=== PATIENT | male | born 1980 | race Caucasian/White ===

== ENCOUNTER 2017-10-22 18:01 | Emergency (ER) | payer OTHER ==
[2017-10-22 18:05] VITALS: BP 140/91
[2017-10-22] MEDS ORDERED: FURO-45 PO (18:11)
[2017-10-22] MEDS ORDERED: LISI-362 PO (18:11)
[2017-10-22] MEDS ORDERED: OMEG-11 PO (18:11)
[2017-10-22] MEDS ORDERED: CHOL10005 PO (18:11)
[2017-10-22] MEDS ORDERED: ATOR40TA24 PO (18:11)
[2017-10-22] MEDS ORDERED: AMLO-96 PO (18:11)
[2017-10-22] MEDS ORDERED: DOXY-179 PO (18:22)
--- NOTE | 2017-10-22 18:23 | ER Report ---
History and Physical Time Seen By MD: 18:09 Hx. of Stated Complaint: pt reports sinus infection x 1.5 weeks HPI/ROS CHIEF COMPLAINT: Sinus congestion, sinus headaches HISTORY OF PRESENT ILLNESS: 37-year-old male patient presents to emergency room with complaint of sinus congestion, sinus headaches. Patient states has been going on for the past 10 days. Patient denies any nausea, vomiting or diarrhea. Patient states he's had a cough which seems to worsen throughout the day. He states that he has been febrile, however when he is checked his temperature is 96 degrees. Patient denies any difficulties with eating and drinking. Patient states he does have significant headaches when he ties his shoes. Patient has a history of multiple sinusitis. He states that he has used doxycycline in the past with good results. Allergies: Coded Allergies: Penicillins (Verified Allergy, Unknown, 10/22/17) codeine (Verified Allergy, Unknown, 10/22/17) erythromycin base (Verified Allergy, Unknown, 10/22/17) shellfish derived (Verified Allergy, Unknown, 10/22/17) Home Meds Active Scripts Doxycycline Hyclate (DOXYCYCLINE HYCLATE) 100 Mg Tablet, 100 MG PO BID, #20 TAB Prov:SATINDER HIDALGO ZUMBA INSTRUCTOR 10/22/17 Reported Medications Cholecalciferol (Vitamin D3) (VITAMIN D3) 1,000 Unit Tablet, 2000 UNIT PO, TAB 10/22/17 [place]-3 Fatty Acids/Fish Oil (FISH OIL 1,000 MG CAPSULE) 1 Each Capsule, 2 EACH PO QDAY, CAPSULE 10/22/17 Furosemide (FUROSEMIDE) 20 Mg Tablet, 1 TAB PO QDAY, TAB 10/22/17 Lisinopril (LISINOPRIL) 10 Mg Tablet, 10 MG PO QDAY, TAB 10/22/17 Atorvastatin Calcium (LIPITOR) 40 Mg Tablet, 1 TAB PO QHS, TAB 10/22/17 Amlodipine Besylate (AMLODIPINE BESYLATE) 5 Mg Tablet, 1 TAB PO QDAY, TAB 10/22/17 Past Medical/Surgical History Patient has a past medical history of hypertension, hyperlipidemia, sinusitis. Patient has no pertinent surgical history. Reviewed Nurses Notes: Yes Constitutional Vital Sign - Last 24 Hours 10/22/17 18:05 Temp 97.7 Pulse 57 Resp 16 B/P (MAP) 140/91 Pulse Ox 94 O2 Delivery Room Air Physical Exam General appearance: Alert no distress. Respiratory: Chest is non tender, lungs are clear to auscultation. Cardiac: Regular rate and rhythm. ENT: Tympanic membranes are pearly-germain, auditory canals are patent, mucous membranes are moist. Tenderness to maxillary and frontal sinuses. DIFFERENTIAL DIAGNOSIS: After history and physical exam differential diagnosis was considered for sinusitis. Medical Decision Making ED Course/Re-evaluation ED Course Patient is admitted and examined, history and physical obtained. Differential diagnoses were considered. Reexamination patient had tenderness to bilateral maxillary and frontal sinuses. With the length of time this been going on, 10 days, I believe that he likely does have a bacterial sinusitis. We'll go ahead and treat him with doxycycline. I discussed the plan with the patient and his significant other. They verbalized understanding and agreement. Decision to Disposition Date: Oct 22, 2017 Decision to Disposition Time: 18:23 Depart Departure Latest Vital Signs Vital Signs Date Time Temp Pulse Resp B/P (MAP) Pulse Ox O2 Delivery O2 Flow Rate FiO2 10/22/17 18:05 97.7 57 16 140/91 94 Room Air Impression: Primary Impression: Sinusitis Condition: Improved Disposition: HOME OR SELF-CARE New Scripts Doxycycline Hyclate (DOXYCYCLINE HYCLATE) 100 Mg Tablet 100 MG PO BID, #20 TAB Prov: SATINDER HIDALGO 10/22/17 Patient Instructions: Sinusitis (ED) Additional Instructions: Increase fluid intake. Get plenty of rest. Take the antibiotics as directed. Follow up with your primary care provider in the next week. Take Tylenol or Ibuprofen as needed for pain or fevers. You may use the decongestant of choice. Return to the ER if condition worsens. Problem Qualifiers Primary Impression: Sinusitis Sinusitis location: pansinusitis Chronicity: acute Recurrence: non- recurrent Qualified Codes: J01.40 - Acute pansinusitis, unspecified SATINDER HIDALGO Oct 22, 2017 18:23
== END 2017-10-22 18:27 | disposition home or self-care (01) ==
LOC: ER 18:12
DX: J01.40 Acute pansinusitis, unspecified (principal)
CPT/HCPCS: 99282

== ENCOUNTER 2018-03-04 17:04 | Emergency (ER) | payer OTHER ==
[~2018-03-04 17:04] MED LIST: AMLO-96 PO; ATOR40TA24 PO; CHOL10005 PO; DOXY-179 PO; FURO-45 PO; LISI-362 PO; OMEG-11 PO
[2018-03-04] MEDS ORDERED: [UNRECOGNIZED DRUG - CODE] TOP (17:08)
[2018-03-04] MEDS ORDERED: MELO-149 PO (17:08)
--- NOTE | 2018-03-04 17:11 | ER Report ---
History and Physical Time Seen By MD: 17:05 HPI/ROS CHIEF COMPLAINT: Sinus pressure, bilateral ear pain HISTORY OF PRESENT ILLNESS: Patient is a 37-year-old male here with complaints of bilateral ear pain, sinus pressure, headaches and dizziness. Patient reportedly developed the symptoms shortly prior to arrival. Patient is afebrile , hemodynamically at time of evaluation and denies focal neurological deficits. Patient reports having prior history of sinus infection. He also complains of fullness in the ears as if he is developing ear infections. Patient denies difficulty swallowing, chest pain, shortness breath, nausea, vomiting. Patient also complains of getting recurrent skin abscesses that his drains. REVIEW OF SYSTEMS: Constitutional: No fever, no chills. Eyes: No discharge, + photosensitivity. ENT: Postnasal drip, sinus pressure, bilateral ear pain and fullness sensation Cardiovascular: No chest pain, no palpitations. Respiratory: No cough, no shortness of breath. Gastrointestinal: No abdominal pain, no vomiting. Genitourinary: No hematuria. Musculoskeletal: No back pain. Skin: No rashes. Neurological:+ headache. Allergies: Coded Allergies: Penicillins (Verified Allergy, Unknown, 03/04/18) codeine (Verified Allergy, Unknown, 03/04/18) erythromycin base (Verified Allergy, Unknown, 03/04/18) shellfish derived (Verified Allergy, Unknown, 03/04/18) Home Meds Active Scripts Doxycycline Hyclate (DOXYCYCLINE HYCLATE) 100 Mg Tablet, 100 MG PO BID for 7 Days, #14 TAB Prov:DEE DEE PIÑA DO 03/04/18 Doxycycline Hyclate (DOXYCYCLINE HYCLATE) 100 Mg Tablet, 100 MG PO BID, #20 TAB Prov:SATINDER HIDALGO DISCOVERY MANAGER 10/22/17 Reported Medications Gentamicin Sulf/Sodium Citrate (Gentamicin 0.9MG/3Ml-Sod Citra) 0.9 Mg/3 Ml-4 % Syringe, 1 TOP TID 03/04/18 Meloxicam (MOBIC) 7.5 Mg Tablet, 10 MG PO QHS 03/04/18 Cholecalciferol (Vitamin D3) (VITAMIN D3) 1,000 Unit Tablet, 2000 UNIT PO, TAB 10/22/17 [place]-3 Fatty Acids/Fish Oil (FISH OIL 1,000 MG CAPSULE) 1 Each Capsule, 2 EACH PO QDAY, CAPSULE 10/22/17 Furosemide (FUROSEMIDE) 20 Mg Tablet, 1 TAB PO QDAY, TAB 10/22/17 Lisinopril (LISINOPRIL) 10 Mg Tablet, 10 MG PO QDAY, TAB 10/22/17 Atorvastatin Calcium (LIPITOR) 40 Mg Tablet, 1 TAB PO QHS, TAB 10/22/17 Amlodipine Besylate (AMLODIPINE BESYLATE) 5 Mg Tablet, 1 TAB PO QDAY, TAB 10/22/17 Constitutional Vital Sign - Last 24 Hours 03/04/18 03/04/18 03/04/18 17:05 17:05 17:19 Temp 98.3 Pulse 72 68 Resp 18 B/P (MAP) 158/95 (116) 158/96 Pulse Ox 92 94 O2 Delivery Room Air Physical Exam General Appearance: The patient is alert, has no immediate need for airway protection and no signs of toxicity. Mild distress secondary to pain Eyes: Pupils equal and round no pallor or injection, + sensitive to light, EOMI intact, + bilateral cerumen impactions ENT, Mouth: Mucous membranes are moist, no erythema of the posterior oropharynx or exudates Respiratory: There are no retractions, lungs are clear to auscultation. Cardiovascular: Regular rate and rhythm. Gastrointestinal: Abdomen is soft and non tender, no masses, bowel sounds normal. Neurological: No focal neurological deficits Skin: Warm and dry, no rashes. Musculoskeletal: Neck is supple non tender. Extremities are nontender, nonswollen and have full range of motion. DIFFERENTIAL DIAGNOSIS: After history and physical exam differential diagnosis was considered for viral sinusitis, bacterial sinusitis, otitis media, otitis externa Medical Decision Making ED Course/Re-evaluation ED Course Patient is a 37-year-old male here with complaints of ear fullness, ear pain bilaterally, postnasal drip, sinus pressure and photosensitivity. Patient reports that the symptoms seem to worsen shortly prior to arrival and had coinciding mild dizziness. Patient is neurologically intact with no focal neurological deficits on examination. He did have bilateral cerumen impactions which were cleared with curette causing scant bleeding to seemingly friable tissue of the ear canals. Patient reportedly also gets recurrent abscesses that his drains. There is one abscess present on his right lower cheek which was recently drained. Patient has had significant penicillin allergy so he was placed on doxycycline seven-day course for concurrent coverage of possible ear infection, sinusitis and skin abscess. I explained to the patient to return promptly if he developed any neurological deficits including diplopia, difficulty moving his eyes, high fevers, worsening headaches or failure of treatment. Patient voiced understanding was hemodynamically stable and neurologically intact at time of discharge. He received his 1st dose of doxycycline in the emergency department prior to discharge Decision to Disposition Date: Mar 04, 2018 Decision to Disposition Time: 17:49 Depart Departure Latest Vital Signs Vital Signs Date Time Temp Pulse Resp B/P (MAP) Pulse Ox O2 Delivery O2 Flow Rate FiO2 03/04/18 17:19 68 94 03/04/18 17:05 98.3 18 158/96 Room Air Impression: Primary Impression: Sinusitis Additional Impressions: Skin abscess Acute ear pain Condition: Improved Disposition: HOME OR SELF-CARE New Scripts Doxycycline Hyclate (DOXYCYCLINE HYCLATE) 100 Mg Tablet 100 MG PO BID for 7 Days, #14 TAB Prov: DEE DEE PIÑA DO 03/04/18 Patient Instructions: Doxycycline (By mouth), Sinusitis (ED) Additional Instructions: Please take one tablet twice a day for 7 days of doxycycline. You may take Tylenol for pain control up to 3 g daily, please do not exceed due to possibility of liver toxicity. Please avoid NSAIDs such as ibuprofen, naproxen, Advil, Aleve sincere currently taking Mobic and this may cause kidney damage. Please return promptly if you develop visual disturbances such as double vision , fevers, worsening headache, neurologic deficits such as weakness in the extremities, facial droop, etc. Please follow-up with her family doctor in the next 3 days for follow-up care. Problem Qualifiers DEE DEE PIÑA DO Mar 04, 2018 17:11
[2018-03-04 17:30] VITALS: BP 140/85
[2018-03-04] MEDS ORDERED: DOXYCYCLINE HYCL 100 MG TAB PO ONE (17:35)
[2018-03-04] MEDS ORDERED: DOXY-179 PO (17:36)
== END 2018-03-04 17:43 | disposition home or self-care (01) ==
LOC: ER 17:10
DX: J01.90 Acute sinusitis, unspecified (principal); L02.01 Cutaneous abscess of face; H92.03 Otalgia, bilateral
CPT/HCPCS: 99283

== ENCOUNTER 2019-01-20 22:23 | Emergency (ER) | payer OTHER ==
[~2019-01-20 22:23] MED LIST changes: +AMLO-125 PO; -AMLO-96 PO; +MELO-149 PO; +[UNRECOGNIZED DRUG - CODE] TOP
[2019-01-20 22:32] VITALS: BP 124/77
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
[2019-01-20] MEDS ORDERED: LORA-629 PO (22:38)
[2019-01-20] MEDS ORDERED: METO50TA19 PO (22:38)
[2019-01-20] MEDS ORDERED: KETOROLAC 30 MG/ML VIAL IVP ONE (23:40)
[2019-01-20] MEDS ORDERED: diphenhydrAMINE 50 MG/ML VIAL IVP ONE (23:40)
[2019-01-20] MEDS ORDERED: METOCLOPRAMIDE 10 MG/2 ML SDV IVP ONE (23:40)
[2019-01-21] MEDS ORDERED: HALOPERIDOL LACT 5 MG/ML VIAL IM ONE (00:45)
[2019-01-21] MEDS ORDERED: DEXAMETHASONE SOD PHOS 10MG/ML IVP ONE (00:45)
[2019-01-21] MEDS ORDERED: LORazepam 2 MG/ML VIAL IVP ONE (01:25)
--- NOTE | 2019-01-21 01:38 | RADIOLOGY IMAGING REPORT ---
FACILITY: [facility] PATIENT NAME: Chance Messina : 1980 MR: [id number] V: [id number] EXAM DATE: ORDERING PHYSICIAN: ANTONIA OWENS TECHNOLOGIST: Location: [facility] [place] Patient: Chance Messina : 1980 Visit/Account:[id number] Date of Sevice: 01/21/2019 CT BRAIN NO CONTRAST HISTORY: Headache COMPARISON STUDIES: none TECHNIQUE: Contiguous axial images were obtained from the skull base to the vertex. One of the following dose optimization techniques was utilized in the performance of this exam: Autom ated exposure control; adjustment of the mA and/or kV according to the patient's size; or use of an i terative reconstruction technique. Specific details can be referenced in the facility's radiology C T exam operational policy. FINDINGS: Hemorrhage: Negative Ventricles / sulci / fissures: Negative Masses / midline shift: Negative White matter: Negative Harding-white differentiation: Negative Extra-axial spaces: Negative Bones and skull base: Negative Visualized mastoid air cells / paranasal sinuses: Negative Numerous skin calcifications are noted. In addition is prominent calcification of the auricular carti melania. IMPRESSION: 1. Unremarkable non-contrast head CT. No evidence for acute intracranial hemorrhage, mass or acute i schemia. Report Dictated By: Juventino Saravia MD at 01/21/2019 1:28 AM Report E-Signed By: Juventino Saravia MD at 01/21/2019 1:32 AM [id number]
[2019-01-21] MEDS ORDERED: ACET/HYDROC 5/325MG TH ER ONLY 2 TAB/BOTTLE PO ONE (02:35)
== END 2019-01-21 02:24 | disposition home or self-care (01) ==
LOC: ER 22:42
DX: R51 Headache (principal); Z79.899 Other long term (current) drug therapy
CPT/HCPCS: 70450; 96374; 96375; 99284; J1100; J1200; J1630; J1885; J2765